=== PATIENT | male | born 1950 | race Caucasian/White ===

== ENCOUNTER → 2017-10-29 13:38 | Outpatient (BNVA) | payer MEDICARE, BC, SELFPAY | PROVIDERS: PCP Internal Medicine; Referring Provider Internal Medicine; Visit Provider Surgery | DX: Z12.11 Encounter for screening for malignant neoplasm of colon (principal) ==

== ENCOUNTER → 2017-11-08 07:52 | Outpatient (BNVA) | payer MEDICARE, BC, SELFPAY | PROVIDERS: PCP Internal Medicine; Visit Provider Surgery | DX: R69 Illness, unspecified (principal) ==

== ENCOUNTER 2017-11-08 09:45 | Day surgery (SDC) | payer MEDICARE, BC, SELFPAY ==
--- NOTE | 2017-11-08 06:54 | W.COLOREPORT ---
Date of service: 11/08/17 Colonoscopy Report Date of procedure: 11/08/17 Pre-op diagnosis general: Hx of polyps and screening for colon cancer Post-op diagnosis procedure note: other (15 polyps, severe diverticulosis, internal hemorrhoids) Procedure: Colonoscopy with polypectomy by cold forceps Surgeon: Lizzette Damon Anesthesia proc note operative: MAC (Stephanie Aguila CRNA) Estimated blood loss (mL): 5 Pathology: other (polyps) Complications: None Disposition: no change Indications: Mr. Balderas is a pleasant 66-year-old gentleman who was seen in the office for a follow-up colonoscopy. He has a history of polyps. Risks benefits and complications were reviewed with him and he wished to proceed no guarantees were given or implied. Prep: Miralax/Dulcolax Procedure Start Time: 11:57 Procedure End Time: 12:42 Retraction Time: 31 minutes Findings: 1. Severe diverticulosis descending and sigmoid colon. 2. 15 polyps scattered throughout the colon. 3. Internal hemorrhoids. Procedure Description: After informed consent was obtained the patient was taken to the procedure room and placed in a left decubitous position. Monitors were applied and a time out was done. The patients name, date of , procedure, allergies to medications and metal in their body was reviewed. The patient was then sedated. Once sedated and comfortable a rectal exam was done. External exam was normal. Internal exam revealed a normal sphincter tone and no palpable masses. The prostate was smooth and normal in size. The scope was then introduced and retrofelexed. Grade I internal hemorrhoids were identified. The scope was straightened and then advanced to the cecum. There was severe diverticulosis noted of the sigmoid and distal descending colon making the advancement of the scope difficult. The TI and appendiceal orifice were identified. The prep was adequate. The scope was then slowly retracted over 31 minutes back into the rectum. 15 polyps were removed. 3 polyps in the ascending colon, 3 polyps in the descending colon, 4 polyps in the sigmoid colon, and 5 polyps in the rectum. The scope was removed and the patient was woken up and taken back to Same day surgery in stable condition. The patient tolerated the procedure well and there were no immediate complications. Follow up: The patient should follow up in 3-5 years unless they develop changes in bowel habits or other new gastrointestinal complaints.
--- NOTE | 2017-11-08 06:56 | PDOC.DSDIS_ITS ---
Discharge Plan Disposition Patient Disposition: HOME Condition: Fair Discharge Details Reason For Visit: HX OF POLYPS Attending Provider: Lizzette Damon Primary Care Provider: Jluis Sandy Home Meds and New Rx's Prescriptions: Continue sildenafil [Viagra] 50 MG tablet 50 mg PO PRN PRNRF: 0 triamcinolone acetonide 15 GM cream 15 gm Topical PRN PRNRF: 0 allopurinol 100 MG tablet 100 mg PO DAILY RF: 0 aspirin [Aspirin Low Dose] 81 MG tablet,delayed release (DR/EC) 81 mg PO DAILY RF: 0 amlodipine [Norvasc] 10 MG tablet 10 mg PO DAILY RF: 0 hydrochlorothiazide 25 MG tablet 25 mg PO DAILY RF: 0 multivitamin 1 EACH capsule 1 ea PO DAILY RF: 0 fluticasone 16 GM spray,suspension 2 puff NS DAILY RF: 0 atenolol 50 MG tablet 50 mg PO DAILY RF: 0 FLUOCINONIDE 0.05% OINT 30 GM OINT...G. 1 applic Topical RF: 0 Discontinued polyethylene glycol 3350 17 gram powder in packet 255 g PO DAILY Qty: 15 RF: 0 bisacodyl [Dulcolax (bisacodyl)] 5 mg tablet,delayed release (DR/EC) 5 mg PO ONCE Qty: 4 RF: 0 Discharge Instructions Instructions: Colonoscopy (DC), Colorectal Polyps (DC), Diverticulosis (DC), Hemorrhoids (DC) Additional Instructions: Findings: 15 polyps Diverticulosis -severe Internal hemorrhoids Follow up: 3-5 years New Medications: none Please call if you develop: Fevers >101.5 Nausea or Vomiting Abdominal pain that is not transient 1. Because there will be medication in your system for the next 24 hours, you may feel a little sleepy. Your coordination will be affected. Therefore: a. Do not drive or operate dangerous equipment for 24 hours. b. Do not drink alcohol beverages for 24 hours (not even beer). c. Plan to go home and rest for the day. 2. Generally there are no restrictions on your activity after a day or so has gone by, but you may feel a bit fatigued for a few days. 3 After you arrive home you may have a light meal and return to a normal diet as you can tolerate it without feeling sick to your stomach. 4. After surgery, you may feel pain or discomfort. This should be only transient , but if it persists please contact your doctor. 5. If there are any questions regarding the findings of your procedure, please feel free to contact your doctor. 6. If you are unable to contact your doctor with a problem, contact the hospital at [phone]. 7. Continue all your regular medications unless directed otherwise. I understand the above instructions and have no questions. Signature of Patient or Responsible Adult Escort Date/Time Name of Responsible Adult Escort Signature of Nurse Date/Time Activity:: Activity as Tolerated Diet:: high fiber diet
[2017-11-08 10:14] VITALS: BP 146/81; PULSE 63; RESP 16; TEMP 36.6; O2SAT 96
[2017-11-08 10:16] VITALS: BP 146/81; PULSE 63; RESP 16; TEMP 36.6; O2SAT 96
[2017-11-08] MEDS: Lactated Ringers 1,000 ML 80 ML IV (10:30)
--- NOTE | 2017-11-08 12:00 | BOWEL_PTH ---
PATIENT: Franc Balderas LOC: [facility] U#:[id number] AGE/SX: 66/M ROOM: RE11/08/[address]: Lizzette Damon MD : 1950 BED: DIS: 11/08/2017 SPEC #: [id number] RECD: 11/08/17 13:08 STATUS: SEJAL REJavy #: [id number] KEVIN: 11/08/17 12:[address]: Lizzette Damon DEPT: Surgical Specimen RECD BY: Cherry Reddy ENTERED: 11/08/17 13:11 SP TYPE: Bowel OTHR DR: Jluis Sandy Tissues: 1 - BIOPSY BOWEL 2 - BIOPSY BOWEL 3 - BIOPSY BOWEL 4 - BIOPSY BOWEL Procedures: GROSS AND MICRO LEVEL 4 Comments: [id number]
[2017-11-08 13:30] VITALS: BP 153/79; PULSE 59; RESP 16; TEMP 36; O2SAT 98
== END 2017-11-08 13:45 | disposition home or self-care (01) ==
LOC: SUR 09:46
PROVIDERS: PCP Internal Medicine; Visit Provider Surgery
PROC: 0DJD8ZZ Inspection of Lower Intestinal Tract, Via Natural or Artificial Opening Endoscopic (ICD-10-PCS; CPT 45378; principal; 2017-11-08 12:00)
DX: Z12.11 Encounter for screening for malignant neoplasm of colon (principal); Z86.010 Personal history of colon polyps; K62.1 Rectal polyp; K63.5 Polyp of colon; D12.2 Benign neoplasm of ascending colon; K64.0 First degree hemorrhoids; I10 Essential (primary) hypertension
CPT/HCPCS: 45380; 88305

== ENCOUNTER 2017-12-29 09:37 | Outpatient (REF) | payer MEDICARE, BC, SELFPAY ==
[2017-12-29 21:44] LABS: Anion Gap 8.5 mmol/L (3-11); BUN 17 mg/dL (7-18); CO2 31.5 mmol/L (21.0-32.0); CREATININE 1.01 mg/dL (0.70-1.30); Calcium 9.7 mg/dL (8.5-10.1); Chloride 100 mmol/L (98-107); Glucose 94 mg/dL (70-100); Potassium 3.9 mmol/L (3.5-5.1); Sodium 140 mmol/L (136-145); Uric Acid 6.1 mg/dL (3.5-7.2)
== END 2017-12-29 09:57 ==
LOC: NCHCN 09:37
PROVIDERS: PCP Internal Medicine; Visit Provider Internal Medicine
DX: I10 Essential (primary) hypertension (principal); M10.9 Gout, unspecified
CPT/HCPCS: 80048; 84550

== ENCOUNTER 2019-01-03 08:44 | Outpatient (REF) | payer MEDICARE, BC, SELFPAY ==
[2019-01-03 23:00] LABS: Anion Gap 10.5 mmol/L (3-11); BUN 18 mg/dL (7-18); CO2 28.5 mmol/L (21.0-32.0); CREATININE 1.17 mg/dL (0.70-1.30); Calculated LDL 154 mg/dL; Chloride 101 mmol/L (98-107); Cholesterol 233 mg/dL (50-200); Glucose 88 mg/dL (70-100); HDL Cholesterol 61 mg/dL (40-60); Potassium 4.1 mmol/L (3.5-5.1); Sodium 140 mmol/L (136-145); Triglyceride 93 mg/dL (30-150)
== END 2019-01-03 09:04 ==
LOC: NCHCN 08:44
PROVIDERS: PCP Internal Medicine; Visit Provider Internal Medicine
DX: I10 Essential (primary) hypertension (principal); E78.5 Hyperlipidemia, unspecified
CPT/HCPCS: 80048; 80061

== ENCOUNTER 2020-01-11 19:05 | Outpatient (REF) | payer MEDICARE, BC, SELFPAY ==
[2020-01-11 21:26] LABS: BUN 20 mg/dL (7-18); CREATININE 1.08 mg/dL (0.70-1.30); Calcium 9.5 mg/dL (8.5-10.1); Calculated LDL 151 mg/dL (<100); Chloride 100 mmol/L (98-107); Cholesterol 247 mg/dL (<200); Glucose 91 mg/dL (74-106); HDL Cholesterol 64 mg/dL (40-60); Potassium 3.9 mmol/L (3.5-5.1); Sodium 140 mmol/L (136-145); Triglyceride 163 mg/dL (<150)
== END 2020-01-11 19:25 ==
LOC: NCHCN 19:05
PROVIDERS: PCP Internal Medicine; Visit Provider Internal Medicine
DX: Z00.00 Encounter for general adult medical examination without abnormal findings (principal); N52.9 Male erectile dysfunction, unspecified; E78.5 Hyperlipidemia, unspecified; I10 Essential (primary) hypertension
CPT/HCPCS: 80048; 80061

== ENCOUNTER 2020-03-15 12:49 | Outpatient (REF) | payer MEDICARE, BC, SELFPAY ==
[2020-03-15 14:03] LABS: Anion Gap 9.8 mmol/L (3-11); BUN 19 mg/dL (7-18); CO2 28.2 mmol/L (21.0-32.0); CREATININE 1.02 mg/dL (0.70-1.30); Calcium 9.7 mg/dL (8.5-10.1); Chloride 102 mmol/L (98-107); Glucose 90 mg/dL (74-106); Potassium 3.9 mmol/L (3.5-5.1); Sodium 140 mmol/L (136-145)
== END 2020-03-15 13:09 ==
LOC: NCHCN 12:49
PROVIDERS: PCP Internal Medicine; Visit Provider Internal Medicine
DX: I10 Essential (primary) hypertension (principal)
CPT/HCPCS: 80048

== ENCOUNTER 2020-04-15 14:58 | Outpatient (REF) | payer MEDICARE, BC, SELFPAY ==
[2020-04-15 13:54] LABS: Anion Gap 10.7 mmol/L (3-11); BUN 17 mg/dL (7-18); CO2 28.3 mmol/L (21.0-32.0); CREATININE 1.1 mg/dL (0.70-1.30); Calcium 9.4 mg/dL (8.5-10.1); Calculated LDL 105 mg/dL (<100); Chloride 103 mmol/L (98-107); Cholesterol 189 mg/dL (<200); Glucose 98 mg/dL (74-106); HDL Cholesterol 71 mg/dL (40-60); Potassium 3.7 mmol/L (3.5-5.1); Sodium 142 mmol/L (136-145); Triglyceride 66 mg/dL (<150)
== END 2020-04-15 14:59 | disposition home or self-care (01) ==
LOC: NCHCN 14:58
PROVIDERS: PCP Internal Medicine; Visit Provider Internal Medicine
DX: I10 Essential (primary) hypertension (principal); E78.5 Hyperlipidemia, unspecified
CPT/HCPCS: 80048; 80061

== ENCOUNTER 2020-06-05 14:22 | Outpatient (REF) | payer MEDICARE, BC, SELFPAY ==
[2020-06-05 22:06] LABS: Abs Immature Grans 0.02 10^3/uL (0.0-0.06); Absolute Eosinophil Count 0.47 10^3/uL (0.0-0.7); Absolute Lymphocyte Count 1.51 10^3/uL (1.2-3.4); Absolute Monocyte Count 0.55 10^3/uL (0.1-0.8); Absolute Neutrophil Count 3.91 10^3/uL (1.2-6.7); Basophils % 1.5; Eosinophils % 7.2; HGB 15.1 g/dL (13.5-17.5); Immature Grans % 0.3; MCH 30.2 pg (27.0-33.0); MCHC 33.6 % (32.0-36.0); MPV 10.4 fL (8.0-11.0); Monocytes % 8.4; Neutrophils % 59.6; Nucleated RBC 0 %; Platelet Count 369 10^3/uL (130-400); RDW 14.1 % (11.8-14.1); RDW-SD 46.7 fL; WBC 6.56 10^3/uL (4.4-10.8)
[2020-06-07 10:19] LABS: HIV-1/2 Ag & Ab Screen Negative (Negative)
== END 2020-06-05 14:23 | disposition home or self-care (01) ==
LOC: NCHCN 14:22
PROVIDERS: PCP Internal Medicine; Visit Provider Internal Medicine
DX: B37.0 Candidal stomatitis (principal); Z11.4 Encounter for screening for human immunodeficiency virus [HIV]
CPT/HCPCS: 87389; 85025

== ENCOUNTER 2022-01-16 15:39 | Outpatient (REF) | payer MEDICARE, BC, SELFPAY ==
[2022-01-16 21:21] LABS: ALT 34 U/L (16-63); AST 23 U/L (15-37); Albumin 4.1 g/dL (3.4-5.0); Alkaline Phosphatase 81 U/L (46-116); Anion Gap 7.9 mmol/L (3-11); BUN 19 mg/dL (7-18); Bilirubin, Total 0.4 mg/dL (0.2-1.0); CO2 29.1 mmol/L (21.0-32.0); CREATININE 1.2 mg/dL (0.70-1.30); Calcium 10.2 mg/dL (8.5-10.1); Calculated LDL 131 mg/dL (<100); Chloride 100 mmol/L (98-107); Cholesterol 212 mg/dL (<200); Estimated GFR 63.85 (mL/min/1.73m2); Glucose 95 mg/dL (74-106); HDL Cholesterol 61 mg/dL (40-60); Potassium 3.7 mmol/L (3.5-5.1); Sodium 137 mmol/L (136-145); Total Protein 7.9 g/dL (6.4-8.2); Triglyceride 101 mg/dL (<150)
== END 2022-01-16 15:40 | disposition home or self-care (01) ==
LOC: NCHCN 15:39
PROVIDERS: PCP Internal Medicine; Visit Provider Internal Medicine
DX: E78.5 Hyperlipidemia, unspecified (principal); I10 Essential (primary) hypertension
CPT/HCPCS: 80053; 80061

== ENCOUNTER → 2022-10-22 07:46 | Outpatient (BNVA) | payer MEDICARE, BC, SELFPAY | PROVIDERS: PCP Internal Medicine; Referring Provider Internal Medicine; Visit Provider Physical Therapy Assistant | DX: Z12.11 Encounter for screening for malignant neoplasm of colon (principal); Z86.010 Personal history of colon polyps ==

== ENCOUNTER 2022-10-29 09:40 | Day surgery (SDC) | payer MEDICARE, BC, SELFPAY ==
--- NOTE | 2022-10-28 21:50 | PDOC.DSDIS_ITS ---
Date of service: 10/29/22 Time of Service: 12:28 Discharge Plan Disposition Patient Disposition: Home Condition: Good Discharge Details Reason For Visit: Colonoscopy Attending Provider: Mitesh Barney Primary Care Provider: Pretty Whitman Home Meds and New Rx's Prescriptions: Continued Praluent Pen 75 mg/mL pen injector 75 mg subcut Q14D strontium citra 1 cap PO DAILY psyllium husk [Daily Fiber] 0.52 gram capsule 1.04 g PO DAILY latoya hips 1 cap PO DAILY Digestive Advantage Advanced 10 billion cell capsule 10 cell PO DAILY sildenafil [Viagra] 50 MG tablet 50 mg PO PRN PRN triamcinolone acetonide 15 GM cream 15 gm Topical PRN PRN allopurinol 100 MG tablet 100 mg PO DAILY amlodipine [Norvasc] 10 MG tablet 10 mg PO DAILY hydrochlorothiazide 25 MG tablet 25 mg PO DAILY multivitamin 1 EACH capsule 1 ea PO DAILY fluticasone propionate 16 GM spray,suspension 2 puff NS DAILY FLUOCINONIDE 0.05% OINT 30 GM OINT...G. 1 applic Topical DIRECTED lysine [L-Lysine] 500 mg tablet 500 mg PO DAILY alpha lipoic acid 50 mg capsule 50 mg PO DAILY turmeric 400 mg capsule 400 mg PO DAILY coenzyme Q10 [Co Q-10] 10 mg capsule 10 mg PO ONCE Fish Oil [phone] mg capsule,delayed release(DR/EC) 1 cap PO DAILY docusate sodium 50 mg capsule 50 mg PO DAILY lisinopril 20 mg tablet 20 mg PO DAILY Discontinued polyethylene glycol 3350 17 gram/dose powder 238 g PO ONCE Qty: 238 0RF Rx Instructions: take per colonoscopy instructions bisacodyl [Dulcolax (bisacodyl)] 5 mg tablet,delayed release (DR/EC) 5 mg PO ONCE Qty: 4 0RF Rx Instructions: take per colonoscopy instructions Discharge Instructions Instructions: Diverticulosis (GEN), Diverticulosis Diet (GEN), Colorectal Polyps (GEN) Additional Instructions: Franc we were able to complete your colonoscopy today without any problems. The prep was excellent. You have a fair amount of diverticulosis. Diverticula are weak spots that occur in the colon wall that typically accumulate with age. They can become infected, and when that happens, patients typically experience pain on the left side of the abdomen, or lower across the middle. In severe cases, patient should be treated with antibiotics for the infection. I have provided some general information here regarding typical management of diverticular disease. I also saw 4 small polyps. 3 of these were in your rectum, and I removed these completely. The fourth polyp was on the other side of the large intestine, and an area called the cecum. Again, these were all small. And I removed them all completely. I will be in touch when I have the pathology report describing the nature of the polyps with my final recommendations for your next colonoscopy. 1. If tolerated, consume a soft, low fiber diet for 1-2 days. 2. Do not drive, drink alcohol, operate machinery, make critical decisions, or do activities that require coordination or balance for 24 hours. 3. Because air was put into your colon during the procedure, expelling air from your rectum (passing gas or farting) is normal. 4. You may not have a bowel movement for 1-3 days because of the colonoscopy prep. This is normal. 5. Go directly to the emergency room if you notice any of the following: Develop chills (warm to touch), or if you have a thermometer and your temperature is above 101 Difficulty breathing or difficultly swallowing Persistent vomiting Severe abdominal pain, other than gas cramps Severe chest pain Black, tarry stools Any bleeding ? exceeding one tablespoon 6. Call your physician if the site where your intravenous was started becomes red, swollen, painful, and warm to touch. 7. Your physician has reviewed your pre-procedure medications. Please continue to take those medications as previously ordered. You will be given specific inf ormation/education regarding any changes to your medications before leaving. Activity:: Activity as Tolerated Diet:: As Tolerated Discharge Orders Discharge Orders: Discharge Order (Routine); Ordered 10/28/22 Ordered By: Mitesh Barney DS: Diagnosis Discharge Diagnosis (1) Encounter for screening for malignant neoplasm of colon: Status: Acute Asessment and Plan: Follow-up on polypectomy results
--- NOTE | 2022-10-28 21:52 | W.COLOREPORT ---
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 He is here for another screening colonoscopy. Prep: Miralax/Dulcolax Procedure Start Time: 11:51 Procedure End Time: 12:12 Retraction Time: 11 Findings: Extensive wid[place]outh sigmoid and left-sided diverticulosis; rectal polyps x3, cecal polyp Procedure Description: After the induction of monitored anesthetic care, and with the patient in left lateral decubitus position, I began by performing an external anorectal exam.? Perineum and skin were normal, as was the anal verge.? There was no evidence of external hemorrhoids.? Next, I performed a digital rectal exam.? I did not appreciate any abnormal findings.? Next, I advanced a colonoscope into the rectal vault.? I performed retroflexion.? This was normal.? Using insufflation, I then advanced the colonoscope beyond the rectal folds and into the sigmoid colon before advancing towards the cecum.? There was extensive sigmoid widemouth diverticulosis that extended well up into the descending colon. Great care was taken to maintain the true lumen, and safely navigate towards the splenic flexure. The quality of the prep was excellent.? The scope was noted to be in the cecum by identification of the ileocecal valve and appendiceal orifice.? Within the cecum was a 0.25 cm sessile polyp. I removed this with cold forceps. There was minimal bleeding. I then began withdrawing the colonoscope using repeated irrigation as necessary for full evaluation of the colonic mucosa. ?Once the scope was withdrawn to the level of the rectum, great care was taken to examine portions of the rectal folds.? Within the rectum I performed 3 separate polypectomies. Each polyp was sessile, and all were less than 0.25 cm. I removed them all with cold forceps. There was minimal bleeding from the sites. Finally, the scope was withdrawn and the patient was brought to the same-day surgery recovery unit as the anesthetic wore off. ?The findings and instructions were shared with the patient prior to discharge.
[2022-10-29 09:43] VITALS: BP 145/90; PULSE 82; RESP 18; TEMP 36; O2SAT 98
[2022-10-29] MEDS: Lactated Ringers 1,000 ML 80 ML IV (10:28)
--- NOTE | 2022-10-29 10:41 | W.ANESPRE ---
General Info Date of Service Date Performed: 10/29/22 Height: 6 ft Weight: 96.6 kg Body Mass Index (BMI): 28.8 Surgical Procedure: Operation Date: 10/29/22 11:20 Proposed Procedure Side Surgeon kendra Barney MD Meds Allergies and Home Medications Allergies Allergy/AdvReac Type Severity Reaction Status Date / Time No Known Allergies Allergy Verified 10/29/22 09:53 Home Medication Medication Instructions Recorded Fluocinonide 0.05% Oint 1 applic topical DIRECTED 08/30/17 Norvasc 10 mg tablet (amlodipine) 10 mg PO DAILY 08/30/17 Viagra 50 mg tablet (sildenafil) 50 mg PO PRN PRN 08/30/17 allopurinol 100 mg tablet 100 mg PO DAILY 08/30/17 fluticasone propionate 50 2 puff NS DAILY 08/30/17 mcg/actuation nasal spray,suspension hydrochlorothiazide 25 mg tablet 25 mg PO DAILY 08/30/17 multivitamin 1 ea PO DAILY 08/30/17 triamcinolone acetonide 0.5 % 15 gm topical PRN PRN 08/30/17 topical cream alpha lipoic acid 50 mg capsule 50 mg PO DAILY 02/05/22 lysine 500 mg tablet (L-Lysine) 500 mg PO DAILY 02/05/22 turmeric 400 mg capsule 400 mg PO DAILY 02/05/22 coenzyme Q10 10 mg capsule (Co 10 mg PO ONCE 02/09/22 Q-10) docusate sodium 50 mg capsule 50 mg PO DAILY 02/09/22 lisinopril 20 mg tablet 20 mg PO DAILY 02/09/22 omega 4-iog-obk-fish oil 300 1 cap PO DAILY 02/09/22 mg-108 mg-162 mg-600 mg capsule,delay rel (Fish Oil) L.acidoph, paracasei,B. lactis 10 10 cell PO DAILY 10/22/22 billion cell capsule (Digestive Advantage Advanced Probiotic) alirocumab 75 mg/mL subcutaneous 75 mg subcut Q14D 10/22/22 pen injector (Praluent Pen) psyllium husk 0.52 gram capsule 1.04 g PO DAILY 10/22/22 (Daily Fiber) latoya hips 1 cap PO DAILY 10/22/22 strontium citra 1 cap PO DAILY 10/22/22 Current Visit Medications: Current Medications Generic Name Dose Route Start Last Admin Trade Name Freq PRN Reason Stop Dose Admin Hyoscyamine Sulfate 0.125 mg 10/28/22 21:53 Hyoscyamine 0.125 Mg Sl/Oral/Chew SL 11/27/22 21:52 DIRECTED PRN Ringer's Solution 1,000 mls @ 80 mls/hr 10/29/22 06:00 10/29/22 10:28 IV 11/27/22 23:59 80 mls/hr INFUSION UMAIR Administration IV Miscellaneous Supplies 1 each 10/29/22 06:00 Iv Access IV 11/27/22 23:59 DIRECTED UMAIR Ondansetron HCl 4 mg 10/28/22 21:53 Ondansetron 4 Mg/2 Ml Vial IVP 11/27/22 21:52 Q4H PRN PRN Nausea / Vomiting Sodium Chloride 0 ml 10/29/22 06:00 Normal Saline Flush 10 Ml Syr IV 11/27/22 23:59 PRN PRN Sodium Chloride 0 ml 10/29/22 06:00 Normal Saline 10 Ml Vial IJ 11/27/22 23:59 DIRECTED PRN Sterile Water 0 ml 10/29/22 06:00 Water,Injection,Sterile 10 Ml Vial IJ 11/27/22 23:59 DIRECTED PRN PFSH Active Problems Active Problems: Problem Status Onset Code Encounter for screening for malignant neoplasm of colon 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 Eczema L30.9 Medical History Medical History Adenomatous polyp of colon Diverticulosis DJD (degenerative joint disease) ED (erectile dysfunction) Gout Hyperlipidemia Hypertension Ruptured appendix Surgical History Surgical History (Updated 10/29/22 @ 09:53 by Vicky Triana RN) Colonoscopy - IV Sedation History of tonsillectomy and adenoidectomy Knee joint replacement by other means Tobacco Smoking/Tobacco Use Status: Former Tobacco Use Alcohol Alcohol Intake: current Alcohol intake frequency: 0-2 drinks per day Alcohol type: wine and hard liquor Substance Use Substance use: Rarely Substance use type: marijuana Vital Signs and Lab Results Vital Signs Most Recent Vital Signs in EMR: Most Recent Vital Signs Temp Pulse Resp BP Pulse Ox 36 C L 82 18 145/90 H 98 10/29/22 09:43 10/29/22 09:43 10/29/22 09:43 10/29/22 09:43 10/29/22 09:43 Lab Results Blood Type / Crossmatch: No Data to Display Complete Blood Count: No Data to Display Complete Metabolic Panel: No Data to Display Liver Function Panel: No Data to Display Coagulation Panel: No Data to Display Cardiac Panel: No Data to Display Arterial Blood Gas: No Data to Display Venous Blood Gas: No Data to Display Pancreas Panel: No Data to Display Thyroid Panel: No Data to Display Infectious Disease: No Data to Display Blood Cultures: No Data to Display Toxicology Panel: No Data to Display Anesthesia Assessment and Plan Anesthesia History Personal History: No History of Anesthesia Complications Family History: No Family History of Anesthesia Complications Exercise Tolerance Exercise Tolerance: Metabolic Equivalents>4 Pertinent Negatives Pertinent Negatives: No Symptoms of GERD Cardiac & Pulmonary Exam Cardiac Exam: Normal S1/S2 Heart Sounds Pulmonary Exam: Clear Bilateral Breath Sounds Implantable Cardiac Device Does patient have a Pacemaker or an ICD?: No Airway Exam Known Difficult Airway: No Mallampati Class: 2 Mouth Opening: Normal (> 3cm) Thyromental Distance: Greater than 3 cm Neck Range of Motion: Full ROM Neck Circumference: Normal Teeth Condition: Normal Dentition ASA Classification ASA Score: ASA 2 Emergency Case?: No NPO Status NPO Status: NPO Clears >2 hours, Solids >8 hours Anesthesia Plan Resuscitation Status: Full Code Anesthesia Technique: General Anesthesia Airway Planned: Natural Airway Monitors Used: Standard Monitors
[2022-10-29 10:44] VITALS: BMI 28.8
--- NOTE | 2022-10-29 12:04 | BOWEL_PTH ---
PATIENT: Franc Balderas LOC: [facility] U#:[id number] AGE/SX: 71/M ROOM: RE10/29/[address]: Mitesh Barney MD : 1950 BED: DIS: 10/29/2022 SPEC #: [id number] RECD: 10/29/22 13:30 STATUS: SEJAL RE #: [id number] KEVIN: 10/29/22 12:[address]: Mitesh Barney DEPT: Surgical Specimen RECD BY: Cherry Reddy ENTERED: 10/29/22 13:31 SP TYPE: Bowel OTHR DR: Pretty Whitman Tissues: 1 - BIOPSY BOWEL 2 - BIOPSY BOWEL Procedures: GROSS AND MICRO LEVEL 4 Comments: [id number]
[2022-10-29 12:21] VITALS: BP 114/78; PULSE 85; RESP 18; TEMP 36.4; O2SAT 97
--- NOTE | 2022-10-29 12:37 | W.ANESPOSTOP ---
Postoperative Evaluation Date, Time and Location Date Performed: 10/29/22 Time Performed: 12:37 Patient Location: Day Surgery Unit Vital Signs Most Recent Imported Vital Signs: Most Recent Vital Signs Temp Pulse Resp BP Pulse Ox 36.4 C L 85 18 114/78 97 10/29/22 12:21 10/29/22 12:21 10/29/22 12:21 10/29/22 12:21 10/29/22 12:21 Pain Score Most Recent Pain Score: Most Recent Pain Score Pain Level 0 10/29/22 12:21 Assessment Mental Status: Awake (Alert & Oriented to Patient Baseline) Airway and Respiratory Function: Patent airway with normal (patient baseline) respiratory exam Cardiovascular Function: Hemodynamically Stable Hydration Status: Adequately Hydrated Nausea & Vomiting: No Nausea or Vomiting Pain: Pt. Denies Any Pain Peripheral Nerve Block: Patient did not receive a nerve block
[2022-10-29 12:51] VITALS: BP 139/90; PULSE 73; RESP 18; TEMP 36.4; O2SAT 96
== END 2022-10-29 13:15 | disposition home or self-care (01) ==
PROVIDERS: PCP Internal Medicine; Visit Provider Surgery
PROC: 0DJD8ZZ Inspection of Lower Intestinal Tract, Via Natural or Artificial Opening Endoscopic (ICD-10-PCS; CPT 45378; principal; 2022-10-29 11:15)
DX: Z12.11 Encounter for screening for malignant neoplasm of colon (principal); Z86.010 Personal history of colon polyps; I10 Essential (primary) hypertension; E78.5 Hyperlipidemia, unspecified; K63.5 Polyp of colon; K57.30 Diverticulosis of large intestine without perforation or abscess without bleeding; K62.1 Rectal polyp
CPT/HCPCS: 45380; 88305

== ENCOUNTER 2023-01-25 09:29 | Outpatient (REF) | payer MEDICARE, BC, SELFPAY ==
[2023-01-25 14:50] LABS: BUN 17 mg/dL (7-18); CREATININE 1.2 mg/dL (0.70-1.30); Calcium 9.6 mg/dL (8.5-10.1); Calculated LDL 66 mg/dL (<100); Chloride 104 mmol/L (98-107); Cholesterol 148 mg/dL (<200); Estimated GFR 63.46 (mL/min/1.73m2); Glucose 104 mg/dL (74-106); HDL Cholesterol 62 mg/dL (40-60); Potassium 3.4 mmol/L (3.5-5.1); Sodium 140 mmol/L (136-145); Triglyceride 104 mg/dL (<150)
== END 2023-01-25 09:30 | disposition home or self-care (01) ==
LOC: NCHCN 09:29
PROVIDERS: PCP Internal Medicine; Visit Provider Internal Medicine
DX: E78.5 Hyperlipidemia, unspecified (principal)
CPT/HCPCS: 80048; 80061

== ENCOUNTER 2023-03-01 16:29 | Outpatient (REF) | payer MEDICARE, BC, SELFPAY | END 2023-03-01 16:30 | disposition home or self-care (01) | LOC: NCHCN 16:29 | PROVIDERS: PCP Internal Medicine; Visit Provider Internal Medicine | DX: E87.6 Hypokalemia (principal) | CPT/HCPCS: 84132 ==

== ENCOUNTER 2023-11-03 18:18 | Outpatient (REF) | payer MEDICARE, BC, SELFPAY ==
[2023-11-03 21:06] LABS: ESR 23 mm/hr (0-20)
[2023-11-03 21:16] LABS: C-Reactive Protein 1.73 mg/dL (<or=0.5); Uric Acid 5.2 mg/dL (3.5-7.2)
[2023-11-05 11:35] LABS: Lyme Ab w Rflx to Lyme Confirm Negative (Negative)
[2023-11-06 16:01] LABS: Anaplasma phagocytophilum Negative (Negative); B. miyamotoi PCR Negative (Negative); Babesia divergens/MO-1 Negative (Negative); Babesia duncani Negative (Negative); Babesia microti Negative (Negative); Ehrlichia chaffeensis Negative (Negative); Ehrlichia ewingii/canis Negative (Negative); Ehrlichia muris eauclairensis Negative (Negative)
== END 2023-11-03 18:19 | disposition home or self-care (01) ==
LOC: NCHCN 18:18
PROVIDERS: PCP Internal Medicine; Visit Provider Internal Medicine
DX: M25.531 Pain in right wrist (principal); R70.0 Elevated erythrocyte sedimentation rate; R79.82 Elevated C-reactive protein (CRP)
CPT/HCPCS: 85652; 87798; 84550; 86140; 86618

== ENCOUNTER 2023-12-18 12:40 | Outpatient (REF) | payer MEDICARE, BC, SELFPAY ==
--- NOTE | 2023-12-18 | DI.RAD_ITS ---
Exam(s) XR CHEST 2V PA LATERAL EXAM: XR CHEST 2V PA LATERAL CLINICAL HISTORY: ICD-10; R05.3 cough. TECHNIQUE: 2D digital imaging was performed. COMPARISON: No exams were available for comparison FINDINGS: 2 views: Heart size is normal. The mediastinum is not widened. Lungs are clear. No infiltrates nor pleural effusions. IMPRESSION: No acute pulmonary findings. DATA REPOSITORY: RADIATION DOSE DELIVERED:
--- NOTE | 2023-12-18 13:41 | DI.VRAD_ITS ---
PROCEDURE INFORMATION: Exam: XR Chest Exam date and time: 12/18/2023 12:58 PM Age: 73 years old Clinical indication: Cough TECHNIQUE: Imaging protocol: Radiologic exam of the chest. Views: 2 views. COMPARISON: No relevant prior studies available. FINDINGS: Lungs: Unremarkable. No consolidation. Pleural spaces: Unremarkable. No pleural effusion. No pneumothorax. Heart/Mediastinum: Unremarkable. No cardiomegaly. Vasculature: Aortic arch calcifications. Unfolding of the thoracic aorta. Bones/joints: Moderate degenerative disease of the right acromioclavicular joint. Mild multilevel anterior osteophytes of the thoracic spine. IMPRESSION: No acute cardiopulmonary process. Dictated and Authenticated by: Regino Viveros MD. Ordering:MAXINE Sow MD
== END 2023-12-18 13:00 ==
LOC: DI 12:40
PROVIDERS: PCP Internal Medicine; Visit Provider Physician Assistant Medical
DX: R05.3 Chronic cough (principal)
CPT/HCPCS: 71046

== ENCOUNTER 2024-01-26 07:36 | Outpatient (REF) | payer MEDICARE, BC, SELFPAY ==
[2024-01-26 15:37] LABS: HGB 14.3 g/dL (13.5-17.5); MCH 30.6 pg (27.0-33.0); MCV 90 fL (80-95); MPV 10.2 fL (8.0-11.0); Platelet Count 347 10^3/uL (130-400); RBC 4.68 10^6/uL (4.36-5.78); RDW 14.4 % (11.8-14.1); RDW-SD 47.4 fL; WBC 6.91 10^3/uL (4.4-10.8)
[2024-01-26 16:16] LABS: ALT 34 U/L (16-63); AST 21 U/L (15-37); Alkaline Phosphatase 70 U/L (46-116); BUN 22 mg/dL (7-18); Bilirubin, Total 0.48 mg/dL (0.2-1.0); CO2 25.9 mmol/L (21.0-32.0); CREATININE 1.2 mg/dL (0.70-1.30); Calcium 9.4 mg/dL (8.5-10.1); Calculated LDL 58 mg/dL (<100); Cholesterol 145 mg/dL (<200); Estimated GFR 63.07 (mL/min/1.73m2); Glucose 92 mg/dL (74-106); HDL Cholesterol 72 mg/dL (40-60); Total Protein 7.5 g/dL (6.4-8.2); Triglyceride 77 mg/dL (<150)
[2024-01-26 16:19] LABS: Anion Gap 10.1 mmol/L (3-11); Chloride 105 mmol/L (98-107); Potassium 4.1 mmol/L (3.5-5.1); Sodium 141 mmol/L (136-145)
== END 2024-01-26 07:37 | disposition home or self-care (01) ==
LOC: NCHCN 07:36
PROVIDERS: PCP Internal Medicine; Visit Provider Internal Medicine
DX: E78.5 Hyperlipidemia, unspecified (principal)
CPT/HCPCS: 80053; 80061; 85027

== ENCOUNTER 2025-02-02 12:01 | Outpatient (REF) | payer MEDICARE, BC, SELFPAY ==
[2025-02-02 16:00] LABS: Anion Gap 10.6 mmol/L (3-11); BUN 19 mg/dL (9-23); CO2 26.4 mmol/L (20.0-31.0); Calcium 9.8 mg/dL (8.3-10.6); Chloride 105 mmol/L (98-107); Cholesterol 155 mg/dL (<200); Glucose 93 mg/dL (74-106); HDL Cholesterol 70 mg/dL (>40); Potassium 3.9 mmol/L (3.5-5.1); Sodium 142 mmol/L (136-145)
[2025-02-03 00:19] LABS: Uric Acid 5.4 mg/dL (3.7-9.2)
== END 2025-02-02 12:02 | disposition home or self-care (01) ==
LOC: NCHCN 12:01
PROVIDERS: PCP Internal Medicine; Visit Provider Internal Medicine
DX: M10.9 Gout, unspecified (principal); E78.5 Hyperlipidemia, unspecified; I10 Essential (primary) hypertension
CPT/HCPCS: 80048; 80061; 84550

== ENCOUNTER 2025-02-05 18:17 | Outpatient (REF) | payer MEDICARE, BC, SELFPAY ==
[2025-02-05 21:48] LABS: Microalb ug/mg Crea 2.4 ug/mg Cr
== END 2025-02-05 18:18 | disposition home or self-care (01) ==
LOC: NCHCN 18:17
PROVIDERS: PCP Internal Medicine; Visit Provider Internal Medicine
DX: I10 Essential (primary) hypertension (principal)
CPT/HCPCS: 82043; 82570